=== PATIENT | male | born 1950 | race Caucasian/White ===

== ENCOUNTER → 2017-03-05 | Outpatient (CLI) | payer OTHER | END | disposition home or self-care (01) | LOC: CDC 12:00 | DX: R94.31 Abnormal electrocardiogram [ECG] [EKG] (principal) | CPT/HCPCS: 93000 ==

== ENCOUNTER 2017-12-20 06:02 | Emergency (ER) | payer OTHER ==
[~2017-12-20] VITALS: Ht 177.8 cm; Wt 108.2 kg
[2017-12-20] MEDS ORDERED: VALIUM5 MG PO (08:41)
[2017-12-20] MEDS ORDERED: MEDROL DOSEPAK4 MG PO (08:41)
[2017-12-20 09:38] VITALS: BP 130/69
== END 2017-12-20 09:38 | disposition home or self-care (01) ==
LOC: EME 06:02
DX: M54.5 Low back pain (principal); M62.830 Muscle spasm of back; Z87.891 Personal history of nicotine dependence
CPT/HCPCS: 99281; 99284; J3010; J7512

== ENCOUNTER 2017-12-22 06:37 | Emergency (ER) | payer OTHER ==
[~2017-12-22] VITALS: Ht 177.8 cm; Wt 108.6 kg
[~2017-12-22 06:37] MED LIST: MEDROL DOSEPAK4 MG PO; VALIUM5 MG PO
[2017-12-22] MEDS ORDERED: NORCO 5/3251 TABLET PO (09:20)
[2017-12-22] MEDS ORDERED: VALIUM5 MG PO (09:20)
[2017-12-22 09:32] VITALS: BP 154/90
== END 2017-12-22 09:39 | disposition home or self-care (01) ==
LOC: EME 06:37
DX: M54.5 Low back pain (principal); I10 Essential (primary) hypertension; Z87.891 Personal history of nicotine dependence
CPT/HCPCS: 72100; 99281; 99284; J1885